=== PATIENT | male | born 1970 | race Hispanic/Latino ===

== ENCOUNTER 2016-07-21 08:18 | Emergency (ER) | payer MEDICAID, OTHER ==
[2016-07-21 08:31] VITALS: BP 146/93
--- NOTE | 2016-07-21 08:37 | ERNOTE ---
ENT HPI Date of Service: 07/21/16 Presenting Symptoms: other - sote throat Time Seen by Provider: 07/21/16 08:30 Source: patient Exam Limitations: no limitations - Immun/Allergies/Home Medications Immunizations: IMMUNIZATION HX Immunizations Up to Date No History of Influenza Vaccine No Hx Pneumococcal Vaccination No Allergies/Adverse Reactions: Allergies Allergy/AdvReac Type Severity Reaction Status Date / Time No Known Allergies Allergy Verified 07/21/16 08:31 Home Medications: HOME MEDICATIONS Azithromycin [Zithromax] 500 mg PO NOW #6 tab 07/21/16 [Last Taken Unknown] - History of Present Illness Narrative: "I think I have strep". patient presents for evaluation of sore throat. He relates his throat has been sore for approx 1.5 weeks but worse last day or two. He has close strep exposures at home. No fever. No Cough. Hurts to swallow. No vomiting or cough. No CP or SOB. No rash. Has not seen anyone else for this. his was Dx with strep yesterday and two other kids in the house have had diagnosed strep. Severity: Present: mild ENT Location: Present: throat Prearrival Treatment: Present: no prearrival treatment Modifying Factors - Worsens: Reports: other - swallowing Associated Symptoms - ENT: Reports: sore throat. Denies: fever, malaise, cough , voice change, drooling, nasal congestion/drainage, tooth pain, jaw swelling, headache Prior Treament: Denies: recently seen Review of Systems - Review of Systems Constitutional: Absent: fever EYE: Present: no symptoms reported ENT: Present: See HPI Respiratory: Absent: shortness of breath, cough Cardiology: Absent: chest pain Gastrointestinal/Abdominal: Absent: abdominal pain Skin: Absent: rash - Patient's Past Medical History Patient History - Cardiac/Respiratory: Hypertension Patient History - Cancer: No Hx of Cancer Patient History - Surgical Procedures: No surgical history Patient History - Other: None - Social History Living Situations: spouse Abuse History: No History of abuse Psych History: No pertinent hx Smoking Status: Current every day smoker Have you smoked in the past 12 months: Yes Alcohol Use: occasionally Drug Use: none - Immunizations Immunizations Up to Date: No Hx Pneumococcal Vaccination: No History of Influenza Vaccine: No Physical Exam - Physical Exam General Appearance: Present: alert, no apparent distress, other - Watching TV sitting on edge of bed. Speaks in full sentences. no distress. Well hydrated , non-roxic. Eye Exam: Normal inspection: bilateral, PERRL: bilateral Ears, Nose, Throat: Present: pharyngeal erythema, other - Nothing clinically to suggest AUDIT REVIEWER, RPA or epiglottitis.. Absent: nasal congestion, sinus pain/ drainage, pharyngeal swelling, tonsillar exudate, dry mucous membranes Neck: Present: normal inspection, nontender, other - no masses Respiratory: Present: no respiratory distress, normal breath sounds, no accessory muscle use, lungs clear Cardiovascular/Chest: Present: regular rate, rhythm Gastrointestinal/Abdominal: Present: normal bowel sounds, nontender, soft Back Exam: Present: normal range of motion Extremity Exam: Present: normal inspection, no edema Neurological Exam: Present: alert, normal mood/affect, no motor/sensory deficits , service inspector II-XII nml as tested Skin Exam: Absent: skin rash ED Progress - Results and Orders Patient's Lab Results:: I have reviewed the patient's lab results. - Vital Signs Patient's Vital Signs:: I have reviewed the patient's vital signs. Vital Signs: Vital Signs 07/21/16 08:27 Temperature 36.5 C Pulse Rate 77 Respiratory 18 Rate Blood Pressure 146/93 O2 Sat by Pulse 97 Oximetry - Progress/Reassessment Chief Complaint: Sore Throat Progress Note-Subjective: 07/21/16 09:00 Clinically no suggestion of RPA, AUDIT REVIEWER or epiglottitis. Initial strep negative but clinically I am going to treat as his has strep and kids have strep and clinically I feel his Sx are c/w strep. I discussed risks and benefits of the approach and he is agreeable. i discussed warning signs and reasons to return as well as the need for close f/u. Departure Clinical Impression: Pharyngitis - Departure Disposition: Home self-care Condition: Stable Instructions: Pharyngitis, [id number]-yx-[id number] Additional Instructions: Rest. Fluids. Follow-up with your doctor in 3 days for a re-check. Return for trouble breathing or swallowing or if your condition worsens or changes in any way. Prescriptions: Azithromycin [Zithromax] 500 mg PO NOW #6 tab
[2016-07-21] MEDS ORDERED: DEXAMETHASONE SOD PHOSPHATE 10 MG/ML VIAL IM ONE (08:59)
== END 2016-07-21 09:06 | disposition home or self-care (01) ==
LOC: ER 08:18
DX: J02.9 Acute pharyngitis, unspecified (principal); F17.210 Nicotine dependence, cigarettes, uncomplicated